=== PATIENT | male | born 1995 | race Caucasian/White ===

== ENCOUNTER 2020-09-20 07:43 | Emergency (ER) | payer SELFPAY ==
[~2020-09-20] VITALS: Ht 175.3 cm; Wt 102.0 kg
[2020-09-20] MEDS ORDERED: HYDROCODONE/ACETAMINOPHEN 5/325MG TABLET PO ONE (08:45)
[2020-09-20] MEDS ORDERED: ONDANSETRON 4MG ODT PO ONE (09:30)
[2020-09-20] MEDS ORDERED: IBUP-2029 MT (09:48)
[2020-09-20 10:20] VITALS: BP 123/84
== END 2020-09-20 10:21 | disposition home or self-care (01) ==
LOC: ER 07:43
DX: S93.492A Sprain of other ligament of left ankle, initial encounter (principal); X58.XXXA Exposure to other specified factors, initial encounter; Y93.89 Activity, other specified; Y92.89 Other specified places as the place of occurrence of the external cause; Y99.8 Other external cause status; F12.10 Cannabis abuse, uncomplicated
CPT/HCPCS: 29505; 73610; 73630; 99284; Q0162

== ENCOUNTER 2020-09-26 11:32 | Emergency (ER) | payer MEDICAID ==
[~2020-09-26] VITALS: Ht 172.7 cm; Wt 80.0 kg
[~2020-09-26 11:32] MED LIST: IBUP-2029 MT
[2020-09-26] MEDS ORDERED: IBUPROFEN 600MG TABLET PO ONE (12:45)
[2020-09-26 13:06] LABS: BASOPHILS % 0.2 % (0.0-2.0); HEMATOCRIT. 43.1 % (42.0-52.0); HEMOGLOBIN. 14.8 g/dL (14.0-18.0); LYMPHOCYTES % 16.4 % (20.0-50.0); MEAN CORPUSCULAR HEMOGLOBIN 30.8 pg (28.0-32.0); MEAN CORPUSCULAR VOLUME 89.5 fL (80.0-94.0); MEAN PLATELET VOLUME 8.5 fl (7.4-10.4); NEUTROPHILS % 74.4 % (40.0-76.0); PLATELET 256 x1000/uL (130-400); RED BLOOD CELL COUNT 4.81 mill/uL (4.7-6.1)
[2020-09-26 13:08] LABS: CHLORIDE 105 mEq/L (98-107)
[2020-09-26] MEDS ORDERED: SULF1TAB48 MT (14:25)
[2020-09-26] MEDS ORDERED: CEPH500C2 MT ×3 (14:25→14:38)
[2020-09-26] MEDS ORDERED: NAPR-681 MT (14:25)
[2020-09-26 14:58] VITALS: BP 125/82
== END 2020-09-26 15:12 | disposition home or self-care (01) ==
LOC: ER 11:32
DX: L03.116 Cellulitis of left lower limb (principal); M25.572 Pain in left ankle and joints of left foot; M79.672 Pain in left foot; S09.8XXA Other specified injuries of head, initial encounter; W19.XXXA Unspecified fall, initial encounter; Y93.9 Activity, unspecified; Y92.9 Unspecified place or not applicable
CPT/HCPCS: 36415; 70450; 73610; 73630; 80053; 85025; 93971; 99285; Z7610